=== PATIENT | male | born 1985 | race Caucasian/White ===

== ENCOUNTER → 2017-03-22 | Outpatient (CLI) | payer OTHER ==
--- NOTE | 2017-03-28 16:19 | SS ---
ADMIT: 03/22/2017 RM/LOC: [facility] MR#: [id number] [address] [id number] EVANGELINA BISWAS [address] [place] [address] Sleep Study SEX: M AGE: 32 : 1985 STUDY DATE: 03/22/2017 REFERRING PHYSICIAN: Natalio Rhodes MD CLINICAL HISTORY: A 32-year-old male, body mass index of 30.4, 69 inches, 206 pounds, with known history of obstructive sleep apnea, in the sleep lab for CPAP titration. TECHNICAL DESCRIPTION: CPAP titration performed on night of 03/22/2017, attended by a trained chemistry technologist. TITRATION FINDINGS: TITRATION DESCRIPTION: The patient was titrated from 5 cm of CPAP to 7 cm of CPAP. A [employer] medium mask was used as interface. SLEEP: Total time in bed is 280 minutes, total sleep total time 255 minutes, sleep efficiency 93.4%. 41.9% hours spent in stage II sleep, 14.4% in stage REM. BREATHING: The patient had excellent resolution of obstructive sleep apnea on CPAP at 7 cm. The patient was seen in REM sleep in lateral position. REM supine sleep was not seen at this ending pressure. OXYGEN SATURATION: Mean sleeping oxygen 94%. CARDIAC: Average heart rate is 80 beats per minute. MOVEMENTS/POSITION: During the study, the patient slept predominantly in the lateral position. No supine sleep was seen with no significant leg movements. IMPRESSION AND PLAN: Recommend using CPAP 7 cm mask as mentioned above. Recommend losing weight, avoiding sedatives or alcohol. Refrain from driving if excessively sleepy. Recommend avoiding sleeping in supine position. Clinical correlation needed. CPAP compliance followup is recommended. Vincent Alicia MD/ dale JOB #: [id number] CC: Natalio Rhodes MD, Attending Physician Natalio Rhodes MD, Family Physician Natalio Rhodes MD
== END | disposition home or self-care (01) ==
LOC: RESC 20:28
DX: G47.33 Obstructive sleep apnea (adult) (pediatric) (principal)